=== PATIENT | female | born 1990 | race Caucasian/White ===

== ENCOUNTER 2021-09-26 19:28 | Emergency (ER) | payer OTHER ==
[~2021-09-26 19:28] MED LIST: OMEPRAZOLE20 M1 PO
== END 2021-09-26 23:35 | disposition home or self-care (01) ==
LOC: FER 19:28
DX: S29.9XXA Unspecified injury of thorax, initial encounter (principal); S39.91XA Unspecified injury of abdomen, initial encounter; I10 Essential (primary) hypertension; Z28.310 Unvaccinated for COVID-19; V49.10XA Passenger injured in collision with unspecified motor vehicles in nontraffic accident, initial encounter
CPT/HCPCS: 71250